=== PATIENT | male | born 1995 | race Hispanic/Latino ===

== ENCOUNTER → 2018-11-27 | Outpatient (REF) | payer OTHER, SELFPAY ==
[2018-11-28 14:03] LABS: SEMEN APPEARANCE OPAQUE (OPAQUE); SEMEN VOLUME 1.5 ml (2.0-5.0)
[2018-11-28 14:04] LABS: SEMEN VISCOSITY LIQUID (LIQUID); SPERM CONCENTRATION 32.8 M/ml (>=15.0); WBC CONCENTRATION <=1 M/ml (<=1 M/ml)
== END ==
LOC: M LAB REF 14:00
PROVIDERS: ATTEND Nurse Practitioner Women's Health
DX: N46.9 Male infertility, unspecified (principal)

== ENCOUNTER 2019-09-25 18:47 | Emergency (ER) | payer OTHER, SELFPAY ==
[~2019-09-25] VITALS: Ht 167.6 cm; Wt 106.8 kg
[2019-09-25] MEDS ORDERED: PROT1TAB2 PO (20:00)
[2019-09-25] MEDS ORDERED: GI COCKTAIL 50ML BTL(HYOSCYAMINE/MAALOX/LIDOCAINE VISCOUS)(1:3:1) PO ONE (20:00)
[2019-09-25 20:02] VITALS: BP 132/74
--- NOTE | 2019-09-25 20:11 | REP ---
Clinical: Chest pain . Comparison: None . Findings: The mediastinum and cardiac silhouette are stable and within normal limits for portable technique. The lung yeager are clear without acute consolidation, effusion, or pneumothorax. Skeletal structures are intact. Impression: No acute cardiopulmonary process appreciated. Electronically Signed by Wilmer Neville MD 09/25/2019 08:02 P
--- NOTE | 2019-09-26 07:27 | ECGEPIP ---
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
== END 2019-09-25 20:06 | disposition home or self-care (01) ==
LOC: M ED 18:47
DX: K21.9 Gastro-esophageal reflux disease without esophagitis (principal); Z79.899 Other long term (current) drug therapy; Z88.0 Allergy status to penicillin; Z87.891 Personal history of nicotine dependence

== ENCOUNTER 2020-04-14 09:20 | Emergency (ER) | payer OTHER ==
[~2020-04-14] VITALS: Ht 167.6 cm; Wt 102.6 kg
[2020-04-14 09:20] VITALS: BP 132/88
[~2020-04-14 09:20] MED LIST: PROT1TAB2 PO
--- OUTSIDE RECORDS SUMMARY | 2020-04-14 09:53 | CCD ---
Author Author [facility] Address Unknown Phone Unavailable Care Team Providers Care Client Customer Manager Name Role Phone [place] PAC, Titus Unavailable Unavailable [place] PAC, Titus Unavailable Unavailable Peggy PAC, Titus Unavailable Unavailable Peggy PAC, Titus Unavailable Unavailable [place] PAC, Titus Unavailable Unavailable [place] PAC, Titus Unavailable Unavailable Peggy PAC, Titus Unavailable Unavailable [place] PAC, Titus Unavailable Unavailable Re-disclosure Warning The records that you are about to access may contain information from federally-assisted alcohol or drug abuse programs. If such information is present, then the following federally mandated warning applies: This information has been disclosed to you from records protected by federal confidentiality rules (42 CFR part 2). The federal rules prohibit you from making any further disclosure of this information unless further disclosure is expressly permitted by the written consent of the person to whom it pertains or as otherwise permitted by 42 CFR part 2. A general authorization for the release of medical or other information is NOT sufficient for this purpose. The Federal rules restrict any use of the information to criminally investigate or prosecute any alcohol or drug abuse patient.The records that you are about to access may contain highly sensitive health information, the redisclosure of which is protected by Article 27-F of the [facility] Public Health law. If you continue you may have access to information: Regarding HIV / AIDS; Provided by facilities licensed or operated by the [facility] Office of Mental Health; or Provided by the [facility] Office for People With Developmental Disabilities. If such information is present, then the following [facility] mandated warning applies: This information has been disclosed to you from confidential records which are protected by state law. State law prohibits you from making any further disclosure of this information without the specific written consent of the person to whom it pertains, or as otherwise permitted by law. Any unauthorized further disclosure in violation of state law may result in a fine or group home sentence or both. A general authorization for the release of medical or other information is NOT sufficient authorization for further disc losure. Encounters Encounter Providers Location Date Indications Data Source(s ) Outpatient Attender: Titus Woods PAC 10/25 09:25:38 AM EDT - 11/24/2019 05:30:00 AM EDT [facility] Patient discharged. Insurance Providers Payer name Policy type / Coverage type Policy ID Covered democrat ID Covered democrat's relationship to valenzuela Policy Valenzulea Plan Information [facility] ACTIVE DUTY [id number] SP [id number] [facility] HUMANA - O/P [id number] 18 [id number] SELF PAY ONLY [facility] [id number] [facility] [id number] Problems, Conditions, and Diagnoses Code Display Name Description Problem Type Effective Dates Data Source(s) G4733 Obstructive sleep apnea (adult) (pediatr ic) Obstructive sleep apnea (adult) (pediatric) Diagnosis 11/23/2019 08:00:00 PM EDT [facility] R0683 Snoring Snoring Diagnosis 11/23/2019 08:00:00 PM ED T [facility] R400 Somnolence Somnolence Diagnosis 11/23/2019 08:00:00 PM ED [facility] Results ID Date Data Source [id number] 03/22/2020 04:29:00 PM EST [facility] Name Value Range Interpretation Code Description Data Jasmine rce(s) Supporting Document(s) SARS coronavirus 2 RNA [facility] This lab was ordered by ИВАН MCLAUGHLIN and reported by [facility]. Procedure
[2020-04-14] MEDS ORDERED: PROT1TAB2 PO (09:57)
[2020-04-14] MEDS ORDERED: PANTOPRAZOLE 40MG TAB (PROTONIX) PO ONE (10:00)
--- NOTE | 2020-04-14 10:17 | REP ---
INDICATION: CHEST PAIN. COMPARISON: September 25, 2019. TECHNIQUE: Portable upright AP chest radiograph. FINDINGS: The lungs are well inflated and free of infiltrate. Pleural angles are sharp. Heart size is normal. Pulmonary vasculature is not increased. Monitoring electrodes are visible. IMPRESSION: No active disease. <Electronically signed by Zachery Martin > 04/14/20 1016
--- NOTE | 2020-04-14 14:13 | ECGEPIP ---
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
== END 2020-04-14 10:22 | disposition home or self-care (01) ==
LOC: M ED 09:20
DX: K21.9 Gastro-esophageal reflux disease without esophagitis (principal); E66.9 Obesity, unspecified; Z79.899 Other long term (current) drug therapy; Z88.0 Allergy status to penicillin

== ENCOUNTER 2020-09-13 11:02 | Day surgery (SDC) | payer OTHER ==
[~2020-09-13] VITALS: Ht 167.6 cm; Wt 83.0 kg
[~2020-09-13 11:02] MED LIST changes: +NS 1,000 ML IV ONE
[2020-09-13] MEDS ORDERED: propofoL 200 MG/20 ML VIAL As Ordered ONE (12:25)
[2020-09-13] MEDS ORDERED: LIDOCAINE 2% 100MG/5ML SDV (FOR ANES.) As Ordered ONE (12:25)
[2020-09-13] MEDS ORDERED: fentaNYL 100 MCG/2 ML INJECTION (J3010) As Ordered ONE (12:26)
--- NOTE | 2020-09-13 12:35 | ROOR ---
Patient Name: Tanvir Tabares Procedure Date: 09/13/2020 12:22 PM Date of : 1995 Age: 25 Room: [facility] Gender: Male Note Status: Finalized Procedure: Upper GI endoscopy Indications: Heartburn Providers: Richie Tompkins MD Referring MD: SANFORD CHRISTINA MD Requesting Provider: Medicines: Monitored Anesthesia Care Complications: No immediate complications. Procedure: Pre-Anesthesia Assessment: - The heart rate, respiratory rate, oxygen saturations, blood pressure, adequacy of pulmonary ventilation, and response to care were monitored throughout the procedure. The Endoscope was introduced through the mouth, and advanced to the second part of duodenum. The upper GI endoscopy was accomplished without difficulty. The patient tolerated the procedure well. Findings: The esophagus was normal. The stomach was normal. The examined duodenum was normal. Biopsies were taken with a cold forceps in the gastric body and in the prepyloric region of the stomach for Helicobacter pylori testing. Impression: - Normal esophagus. - Normal stomach. - Normal examined duodenum. - Biopsies were taken with a cold forceps for Helicobacter pylori testing. Recommendation: - Await pathology results. - Telephone endoscopist for pathology results in 2 weeks. - Observe patient's clinical course. - Follow an antireflux regimen. Procedure Code(s): --- Professional --- 98431, Esophagogastroduodenoscopy, flexible, transoral; with biopsy, single or multiple Diagnosis Code(s): --- Professional --- R12, Heartburn CPT copyright 2019 [employer]. All rights reserved. The codes documented in this report are preliminary and upon encoding clerk review may be revised to meet current compliance requirements. Richie Tompkins MD Richie Tompkins MD 09/13/2020 12:34:38 PM Electronically signed by Richie Tompkins MD Number of Addenda: 0 Note Initiated On: 09/13/2020 12:22 PM Estimated Blood Loss: Estimated blood loss: none.
--- NOTE | 2020-09-13 12:47 | ROOR ---
Patient Name: Tanvir Tabares Procedure Date: 09/13/2020 12:22 PM Date of : 1995 Age: 25 Room: [facility] Gender: Male Note Status: Finalized Procedure: Colonoscopy Indications: Hematochezia Providers: Richie Tompkins MD Referring MD: SANFORD CHRISTINA MD Requesting Provider: Medicines: Monitored Anesthesia Care Complications: No immediate complications. Procedure: Pre-Anesthesia Assessment: - The heart rate, respiratory rate, oxygen saturations, blood pressure, adequacy of pulmonary ventilation, and response to care were monitored throughout the procedure. The Colonoscope was introduced through the anus and advanced to the terminal ileum, with identification of the appendiceal orifice and IC valve. The colonoscopy was performed without difficulty. The patient tolerated the procedure well. The quality of the bowel preparation was good. Findings: The perianal and digital rectal examinations were normal. Non-bleeding internal hemorrhoids were found during retroflexion. The hemorrhoids were small. A 5 mm polyp was found in the descending colon. The polyp was sessile. The polyp was removed with a cold snare. Resection and retrieval were complete. Retroflexion in the right colon was performed. The exam was otherwise without abnormality on direct and retroflexion views. Impression: - Non-bleeding internal hemorrhoids. - One 5 mm polyp in the descending colon, removed with a cold snare. Resected and retrieved. - The colon and terminal ileum examinations are otherwise normal on direct and retroflexion views. Recommendation: - Use fiber, for example Citrucel, Fibercon, Konsyl or Metamucil. - Repeat colonoscopy in 5 years for surveillance. Procedure Code(s): --- Professional --- 75276, Colonoscopy, flexible; with removal of tumor(s), polyp(s), or other lesion(s) by snare technique Diagnosis Code(s): --- Professional --- K92.1, Melena (includes Hematochezia) K63.5, Polyp of colon K64.8, Other hemorrhoids CPT copyright 2019 [employer]. All rights reserved. The codes documented in this report are preliminary and upon office sweeper review may be revised to meet current compliance requirements. Richie Tompkins MD Richie Tompkins MD 09/13/2020 12:46:56 PM Electronically signed by Richie Tompkins MD Number of Addenda: 0 Note Initiated On: 09/13/2020 12:22 PM Estimated Blood Loss: Estimated blood loss: none.
[2020-09-13 13:15] VITALS: BP 135/90
== END 2020-09-13 13:16 | disposition home or self-care (01) ==
LOC: M OPP 11:02
PROVIDERS: ATTEND Internal Medicine Gastroenterology
DX: D12.4 Benign neoplasm of descending colon (principal); K64.8 Other hemorrhoids; K21.9 Gastro-esophageal reflux disease without esophagitis; K92.1 Melena; R12 Heartburn; Z88.1 Allergy status to other antibiotic agents; Z87.891 Personal history of nicotine dependence
CPT/HCPCS: 43239; 45385; 88305; 88342; J3010